=== PATIENT | female | born 1955 | race African-American/Black ===

== ENCOUNTER 2016-09-21 09:09 | Day surgery (SDC) | payer OTHER ==
[2016-09-10 12:03] VITALS: BMI 26.2
[~2016-09-21 09:09] MED LIST: oxyCODONE HCL 10 MG SUSTAINED ACTING TABLET PO ONE
--- NOTE | 2016-09-21 10:16 | HP ---
History & Physical Update - History History: No Change - Physical Physical: No Change - Assessment Assessment: No Change - Plan Plan: No Change
[2016-09-21] MEDS ORDERED: ROCURONIUM BROMIDE 50 MG/5 ML VIAL ONE (10:31)
[2016-09-21] MEDS ORDERED: PROPOFOL 20 ML ONE ×9 (10:31→13:12)
[2016-09-21] MEDS ORDERED: MIDAZOLAM HCL 2 MG/2 ML SINGLE DOSE VIAL ONE (10:31)
[2016-09-21] MEDS ORDERED: DEXAMETHASONE SOD PHOSPHATE 4 MG/1 ML VIAL ONE (10:36)
[2016-09-21] MEDS ORDERED: ceFAZolin SODIUM 1 GM VIAL ONE (10:36)
[2016-09-21] MEDS ORDERED: LIDOCAINE HCL/PF 2% SDV 5ML VIAL ONE (10:36)
[2016-09-21] MEDS ORDERED: ONDANSETRON 4 MG/2 ML VIAL ONE (10:36)
[2016-09-21] MEDS ORDERED: LIDOCAINE 1%/EPI 1:100000 (50 ML MULTI DOSE VIAL) INF ONE (11:45)
[2016-09-21] MEDS ORDERED: METOPROLOL TARTRATE 5 MG/5 ML VIAL ONE (12:41)
[2016-09-21] MEDS ORDERED: ONDANSETRON 4 MG/2 ML VIAL IVPUSH PRN (14:08)
[2016-09-21] MEDS ORDERED: PROMETHAZINE HCL 25 MG/1 ML VIAL IVPUSH PRN (14:08)
--- NOTE | 2016-09-21 14:08 | OP ---
Operative Note - Note: Operative Date: 09/21/16 Pre-Operative Diagnosis: anterior cervcial stenosis Operation: anterior cervical fusion of C3-C4, C4-C5 Surgeon: [facility] Admissions Director: Nyasia Murphy Anesthesiologist/PUBLIC FINANCE SPECIALIST: Nick Treadwell Anesthesia: General Estimated Blood Loss (mls): 20 Fluid Volume Replaced (mls): 1,100 Operative Report Dictated: Yes
--- NOTE | 2016-09-21 14:09 | SURG ---
Surgery Chief Medical Director Note Chief Medical Director: Nyasia Murphy PA-C Date of Service: 09/21/16 Diagnosis: anterior cervical fusion Procedure: anterior cervical fusion of C3-C4, C4-C5 I was present for the entirety of the operative procedure. For further detail, please refer to operative report. Visit type - Case Type Case Type: Scheduled Admission - Emergency Emergency Visit: No - New patient This patient is new to me today: Yes Date on this admission: 09/21/16 - Critical Care Critical Care patient: No
[2016-09-21] MEDS ORDERED: ONDANSETRON 4 MG/2 ML VIAL IVPB PRN (14:10)
[2016-09-21] MEDS ORDERED: oxyCODONE HCL 5 MG TABLET PO PRN ×2 (14:10)
[2016-09-21] MEDS ORDERED: ACETAMINOPHEN 1000 MG/100 ML VIAL (NON FORMULARY) IVPB ONE (14:19)
[2016-09-21] MEDS ORDERED: KETOROLAC TROMETHAMINE 30 MG/1 ML VIAL IVPUSH PRN (14:45)
[2016-09-21] MEDS ORDERED: diazePAM 5 MG TABLET ONE (15:57)
[2016-09-21] MEDS ORDERED: diazePAM 5 MG TABLET PO ONE (16:00)
[2016-09-21] MEDS: SODIUM CHLORIDE 1,000 ML IV SCH ×2 (19:34→20:49)
[2016-09-21] MEDS ORDERED: traMADol HCL 50 MG TABLET PO PRN (20:00)
[2016-09-21] MEDS: CEFAZOLIN 1 GM/D5W 50 ML IVPB SCH (20:46)
[2016-09-21] MEDS: ACETAMINOPHEN 325 MG TABLET (FP) PO SCH (21:32)
[2016-09-21] MEDS ORDERED: SOLIFENACIN SUCCINATE 5 MG TAB (FP) PO SCH (22:00)
[2016-09-21] MEDS ORDERED: CYCLOBENZAPRINE HCL 10 MG TABLET (FP) PO PRN (22:00)
[2016-09-21] MEDS ORDERED: PATIENT'S OWN MEDICATION (NON-FORMULARY) (Losartan/Hydrochlorothiazide [Losartan-Hctz 100- PO SCH (22:00)
[2016-09-21] MEDS ORDERED: LOSARTAN POTASSIUM 50 MG TABLET (FP) PO SCH (22:00)
[2016-09-21] MEDS ORDERED: HYDROCHLOROTHIAZIDE 12.5 MG CAPSULE (FP) PO SCH (22:00)
[2016-09-21] MEDS ORDERED: PATIENT'S OWN MEDICATION (NON-FORMULARY) (Oxybutynin Chloride [Ditropan Xl] 10 MG) PO SCH (22:00)
[2016-09-21 22:49] VITALS: TEMP 97.7
[2016-09-22] MEDS: ACETAMINOPHEN 325 MG TABLET (FP) PO SCH ×2 (02:46→09:29)
[2016-09-22] MEDS: CEFAZOLIN 1 GM/D5W 50 ML IVPB SCH (04:00)
[2016-09-22 05:53] VITALS: BP 121/66; PULSE 65
[2016-09-22] MEDS ORDERED: metFORMIN HCL 500 MG TABLET (FP) PO SCH (07:00)
--- NOTE | 2016-09-22 07:56 | DS ---
Physical Exam: SUBJECTIVE: Patient seen and examined. Patient is doing well, pain is controlled. She has been out of bed walking with assistance. She has been tolerating her diet and urinating without issue. She has no complaints. Denies fever, chills, nausea, vomiting. OBJECTIVE: Vital Signs Temperature 97.7 F 09/22/16 05:52 Pulse Rate 65 09/22/16 05:52 Respiratory Rate 18 09/22/16 07:36 Blood Pressure 121/66 09/22/16 05:52 O2 Sat by Pulse Oximetry (%) 96 09/22/16 07:36 PHYSICAL EXAM GENERAL: The patient is awake, alert, and fully oriented, in no acute distress. HEAD: Normal with no signs of trauma. EYES: PERRL, extraocular movements intact, sclera anicteric, conjunctiva clear. ENT: Ears normal, nares patent, oropharynx clear without exudates, moist mucous membranes. NECK: Incision soft, clean, dry, intact, drain removed intact without issue, patient tolerated well. LUNGS: Breath sounds equal, clear to auscultation bilaterally, no wheezes, no crackles, no accessory muscle use. HEART: Regular rate and rhythm, S1, S2 without murmur, rub or gallop. ABDOMEN: Soft, nontender, nondistended, normoactive bowel sounds, no guarding, no rebound, no hepatosplenomegaly, no masses. EXTREMITIES: 2+ pulses, warm, well-perfused, no edema. NEUROLOGICAL: Cranial nerves II through XII grossly intact. Normal speech, gait not observed. UE strength and sensation intact and equal bilat. LE sensation equal bilat. PSYCH: Normal mood, normal affect. SKIN: Warm, dry, normal turgor, no rashes or lesions noted. LABS CBC,CMP POC Glucometer 139 UNITS (()) 09/22/16 06:38 HOSPITAL COURSE: Date of Admission:09/21/16 Date of Discharge: 09/22/16 The patient was admitted to the Med-Surg Unit after an elective repair of their anterior cervical stenosis. Now, s/p anterior cervical fusion of C3-C4, C4-C5. The day of surgery, the patient ambulated the hallways with assistance. Narcotic and non-narcotic pain management control was achieved with an oral and IV approach. POD #1, the surgical drain was removed fully intact and without incident. An xray was obtained and confirmed hardware placement, no fractures or dislocations. Renee-operative IV ABX were administered. DVT prophylaxis was achieved with SCDs and early ambulation. The patient ambulated with Physical Therapy and no services were recommended upon discharge. Narcotic scripts and or muscle relaxants were checked with [facility] prior to escribe (reference #[id number]). The discharge instructions and an oral pain management plan were reviewed with the patient. All questions answered. Above plan discussed with Dr. Colindres and agreed. Minutes to complete discharge: 30 <MargothAnthonyCelia - Last Filed: 09/22/16 13:36> Physical Exam: SUBJECTIVE: Patient seen and examined OBJECTIVE: Vital Signs Temperature 97.7 F 09/22/16 05:52 Pulse Rate 65 09/22/16 05:52 Respiratory Rate 18 09/22/16 07:36 Blood Pressure 121/66 09/22/16 05:52 O2 Sat by Pulse Oximetry (%) 96 09/22/16 07:36 PHYSICAL EXAM GENERAL: The patient is awake, alert, and fully oriented, in no acute distress. HEAD: Normal with no signs of trauma. EYES: PERRL, extraocular movements intact, sclera anicteric, conjunctiva clear. ENT: Ears normal, nares patent, oropharynx clear without exudates, moist mucous membranes. NECK: Trachea midline, full range of motion, supple. LUNGS: Breath sounds equal, clear to auscultation bilaterally, no wheezes, no crackles, no accessory muscle use. HEART: Regular rate and rhythm, S1, S2 without murmur, rub or gallop. ABDOMEN: Soft, nontender, nondistended, normoactive bowel sounds, no guarding, no rebound, no hepatosplenomegaly, no masses. EXTREMITIES: 2+ pulses, warm, well-perfused, no edema. NEUROLOGICAL: Cranial nerves II through XII grossly intact. Normal speech, gait not observed. PSYCH: Normal mood, normal affect. SKIN: Warm, dry, normal turgor, no rashes or lesions noted. LABS CBC,CMP POC Glucometer 139 UNITS (()) 09/22/16 06:38 HOSPITAL COURSE: Date of Admission:09/21/16 Date of Discharge: 09/24/16 The patient was admitted to the Med-Surg Unit after an elective repair of their (problem). Now, s/p ( procedure ). The day of surgery, the patient ambulated the hallways with assistance. Narcotic and non-narcotic pain management control was achieved with an oral and IV approach. POD #1, the surgical drain was removed fully intact and without incident. An xray was obtained and confirmed hardware placement at (level of ), no fractures or dislocations. Renee-operative IV ABX were administered. DVT prophylaxis was achieved with SCDs and early ambulation. The patient ambulated with Physical Therapy and no services were recommended upon discharge. Narcotic scripts and or muscle relaxants were checked with [facility] [employer] prior to escibe. The discharge instructions and an oral pain management plan were reviewed with the patient. All questions answered. Above plan discussed with Dr. Colindres and agreed. Patient seen and examined Agree with Above D/C Planning <Delano Colindres - Last Filed: 09/24/16 10:42> Visit type - Case Type Case Type: Scheduled Admission - New patient This patient is new to me today: Yes Date on this admission: 09/22/16 <Celia Justin - Last Filed: 09/22/16 13:36>
--- NOTE | 2016-09-22 08:32 | PN ---
Progress Note (short form) - Note Progress Note: Patient doing well POD#1 s/p GETA for two level anterior cervical fusion/ instrumentation. Pain adequately controlled. No nausea. Patient able to ambulate and is tolerating po. Continue current care. Encourage ambulation and incentive spirometry.
[2016-09-22] MEDS ORDERED: PATIENT'S OWN MEDICATION (NON-FORMULARY) (Omeprazole 20 MG) PO SCH (10:00)
[2016-09-22] MEDS ORDERED: PANTOPRAZOLE 20 MG TABLET (FP) PO SCH (10:00)
--- NOTE | 2016-09-22 14:51 | OP ---
DATE OF OPERATION: 09/21/2016 PREOPERATIVE DIAGNOSIS: Cervical stenosis C3-4, C4-5. POSTOPERATIVE DIAGNOSIS: Cervical stenosis C3-4, C4-5. PROCEDURE PERFORMED: Anterior cervical diskectomy and fusion C3-4, anterior cervical diskectomy C4-5, placement of prosthetic cages. SURGEON: Delano Colindres MD LIFE SUPPORT TECHNICIAN: DESTINI Chang ESTIMATED BLOOD LOSS: 50 mL. INTRAVENOUS FLUIDS: Per Anesthesia. COMPLICATIONS: None. ANESTHESIA: General. DISPOSITION: Patient brought to the PACU in stable condition. INDICATION FOR SURGERY: The patient is a 61-year-old female who has been suffering from pain from her neck down her arms. X-rays, MRI were completed noted that she had cervical stenosis at L3-4, L4-5. She had gone through an exhaustive course of treatment for this which included medications, physical therapy, as well as injections. Unfortunately, pain continued to persist despite all this. At this point risks, benefits, and alternatives were discussed and the patient consented to surgery. OPERATIVE NOTE: The patient was brought to the operating room by the anesthesia staff. After appropriate patient identification was performed, general anesthesia was administered. Appropriate anesthetic lines were placed. SCDs were placed on the patient. Patient was placed supine on the OR bed with her arms tucked in at the side. A needle was taped onto her neck to katina off the C3-4 area. X-ray was taken to confirm this was correct. Needle was removed and 10 mL of lidocaine with epinephrine was injected into her neck. At this time her neck was prepped and draped in a sterile manner. At this point a timeout was completed. A 2-inch incision was made in the left side of her neck. Dissection was carried down to the platysma. The platysma was cut in line with the skin incision. Next interval between the sternocleidomastoid as well as strap muscles was developed. Next, the interval between the trachea, esophagus, and cartilage was developed. Peanuts were used to elevate off the prevertebral fascia. A spinal needle was placed into the C3-4 disk. An x-ray was taken to confirm this was correct. Needle was removed and a microscope was brought in. At this point the longus colli muscles were elevated off and appropriate retractors were then placed in. [place] pins were placed into the body of C3 and C4 and distraction was applied. At this point a knife was used to incise the disk. Using a series of pituitaries, Kerrisons, and curets, a diskectomy was completed. The endplates were decorticated at this time. A size 6 cage filled with bone graft was placed into C4-5. A size 5 cage filled with bone graft was placed into C3-4. Screws were placed into the body of C3, C4, and C5. AP and lateral x-rays confirmed the instrumentation to be in good position. Final tightening was performed. A BELL drain was placed. The platysma was closed with 2-0 Vicryls. Skin was closed with 3-0 Monocryl suture. Dermabond was applied. Steri-Strips were applied. Sterile dressing was applied. Patient was awakened on the OR bed, extubated in the OR and brought to the PACU in stable condition. Benigno [id number] MTDD
== END 2016-09-22 14:03 | disposition home or self-care (01) ==
LOC: FASU 09:09 → FM/S 16:21 → FASU 09-22 14:03
PROVIDERS: ATTEND Orthopaedic Surgery Orthopaedic Surgery of the Spine
PROC: 0RG10A0 Fusion of Cervical Vertebral Joint with Interbody Fusion Device, Anterior Approach, Anterior Column, Open Approach (ICD-10-PCS; 2016-09-21)
PROC: 0RG10K0 Fusion of Cervical Vertebral Joint with Nonautologous Tissue Substitute, Anterior Approach, Anterior Column, Open Approach (ICD-10-PCS; 2016-09-21)
PROC: 0RB30ZZ Excision of Cervical Vertebral Disc, Open Approach (ICD-10-PCS; principal; 2016-09-21 10:45)
DX: M48.02 Spinal stenosis, cervical region (principal)
CPT/HCPCS: 72050-TC; 72100-TC; 76000-TC; 94010; 94760; 97116-GP; 97161-GP